=== PATIENT | female | born 1980 | race African-American/Black ===

== ENCOUNTER 2017-12-10 04:09 | Inpatient (IN) | payer BC ==
[2017-12-10] MEDS ORDERED: METHYLERGONOVINE 0.2 MG INJ IM ×2 (05:30→13:30)
[2017-12-10] MEDS ORDERED: CARBOPROST 250 MCG INJ IM ×2 (05:30→13:30)
[2017-12-10] MEDS ORDERED: CEFAZOLIN 2 GM/50 ML (PMX) 50 ML IV (05:30)
[2017-12-10] MEDS ORDERED: OXYTOCIN 30 UNITS/LR 500 ML IV ×2 (05:30→13:30)
[2017-12-10] MEDS ORDERED: MISOPROSTOL 200 MCG TAB PR ×2 (05:30→13:30)
[2017-12-10 05:49] LABS: ADD MAN DIFF? NO
[2017-12-10 05:57] LABS: WHITE BLOOD COUNT 6.3 10^3/ul (4.8-10.8)
[2017-12-10 05:57] LABS: BASOPHILS % 0.3 % (0.0-2.0); EOSINOPHILS % 0.6 % (0.0-7.0); HEMATOCRIT 34.2 % (37.0-47.0); HEMOGLOBIN 11.5 g/dl (12.0-16.0); LYMPHOCYTES # 1.7 10^3/ul (0.8-2.9); LYMPHOCYTES % 26.9 % (15.0-51.0); MEAN CORPUSCULAR HEMOGLOBIN 27.8 pg (29.0-33.0); MEAN CORPUSCULAR HGB CONC 33.6 g/dl (32.0-37.0); MEAN CORPUSCULAR VOLUME 82.6 fl (82.0-101.0); MEAN PLATELET VOLUME 11.1 fl (7.4-10.4); MONOCYTE # 0.6 10^3/ul (0.3-0.9); MONOCYTES % 9.5 % (0.0-11.0); NEUTROPHIL # 3.9 10^3/ul (1.6-7.5); NEUTROPHILS % 62.2 % (39.0-77.0); PLATELET COUNT 221 10^3/UL (140-415); RED BLOOD COUNT 4.14 10^6/ul (4.20-5.40); RED CELL DISTRIBUTION WIDTH 14.6 % (11.5-14.5)
[2017-12-10 06:04] LABS: ADD UMIC NO; UR ASCORBIC ACID NEGATIVE (NEGATIVE); UR BACTERIA FEW /HPF (NONE SEEN); UR BILIRUBIN (Dip) NEGATIVE (NEGATIVE); UR BLOOD (Dip) NEGATIVE (NEGATIVE); UR CLARITY SLIGHTLY CLOUDY (CLEAR); UR COLOR YELLOW (YELLOW); UR GLUCOSE (Dip) NEGATIVE (NEGATIVE); UR KETONES (Dip) NEGATIVE (NEGATIVE); UR LEUKOCYTE ESTERASE (Dip) NEGATIVE Leu/ul (NEGATIVE); UR NITRITE (Dip) NEGATIVE (NEGATIVE); UR RBC 0 /HPF (0-5); UR SPECIFIC GRAVITY (Dip) 1.014 (1.003-1.030); UR SQUAMOUS EPITHELIAL CELL FEW /HPF (FEW); UR TOTAL PROTEIN (Dip) NEGATIVE (NEGATIVE); UR UROBILINOGEN (Dip) NEGATIVE (NEGATIVE); UR WBC 2 /HPF (0-5)
[2017-12-10 06:14] LABS: INR 0.85; PROTIME 11.7 Sec (11.9-14.9); PT RATIO 0.9
[2017-12-10 06:15] LABS: PARTIAL THROMBOPLASTIN TIME 27.3 Sec (25.0-35.0)
[2017-12-10 06:16] LABS: ALANINE AMINOTRANSFERASE 19 IU/L (13-69); ALBUMIN 3.3 g/dl (3.3-4.9); ALKALINE PHOSPHATASE 176 IU/L (42-121); AMPHETAMINE/METHAMPHETAMINE Negative (NEGATIVE); ANION GAP 12 (8-16); ASPARTATE AMINO TRANSFERASE 19 IU/L (15-46); BARBITURATES Negative (NEGATIVE); BENZODIAZEPINES Negative (NEGATIVE); BILIRUBIN,INDIRECT 0.2 mg/dl (0-1.1); BILIRUBIN,TOTAL 0.2 mg/dl (0.2-1.3); BLOOD UREA NITROGEN 9 mg/dl (7-20); CALCIUM 9.3 mg/dl (8.4-10.2); CANNABINOIDS Negative (NEGATIVE); CARBON DIOXIDE 25 mmol/L (21-31); CHLORIDE 105 mmol/L (97-110); COCAINE Negative (NEGATIVE); CREATININE 0.77 mg/dl (0.44-1.00); GLUCOSE 106 mg/dl (70-220); OPIATES Negative (NEGATIVE); POTASSIUM 4.4 mmol/L (3.5-5.1); SODIUM 138 mmol/L (135-144); TOTAL PROTEIN 6.6 g/dl (6.1-8.1)
[2017-12-10] MEDS: LACTATED RINGER'S 1,000 ML IV ×3 (06:17→21:23)
[2017-12-10 06:50] LABS: HEPATITIS B SURFACE ANTIGEN NEGATIVE (NEGATIVE)
[2017-12-10] MEDS ORDERED: OXYTOCIN 30 UNITS/LR 500 ML BAG IV (07:00)
[2017-12-10] MEDS ORDERED: CEFAZOLIN 3 GM in DEXTROSE 5% 100 ML IV (07:30)
[2017-12-10] MEDS ORDERED: PHENYLephrine (100 MCG/ML) 5ML SYG (08:17)
[2017-12-10] MEDS ORDERED: BUPIVACAINE 0.75%/DEXT (SPINAL) 2 ML INJ (08:17)
[2017-12-10] MEDS ORDERED: morphine SULFATE/PF (10 MG/10 ML) INJ (08:17)
[2017-12-10] MEDS ORDERED: OXYTOCIN 10 UNIT INJ (08:17)
[2017-12-10] MEDS ORDERED: ONDANSETRON 4 MG INJ (08:17)
[2017-12-10 08:38] LABS: HIV 1&2 ANTIBODY NEGATIVE (NEGATIVE)
[2017-12-10] MEDS: OXYTOCIN 30 UNITS/LR 500 ML IV ×2 (09:50→16:43)
[2017-12-10] MEDS: KETOROLAC 30 MG INJ IV ×2 (10:23→16:41)
[2017-12-10] MEDS ORDERED: morphine 2 MG INJ IV (10:30)
[2017-12-10] MEDS ORDERED: NALOXONE (0.4 MG/ML) INJ IV (10:30)
[2017-12-10] MEDS ORDERED: ONDANSETRON 4 MG INJ IV (10:30)
[2017-12-10] MEDS ORDERED: DIPHENHYDRAMINE 50 MG INJ IV (10:30)
[2017-12-10] MEDS: LABETALOL 200 MG TAB PO (10:54)
[2017-12-10] MEDS: LABETALOL 100 MG TAB PO ×2 (13:23→21:00)
[2017-12-10] MEDS: CEFAZOLIN 2 GM/50 ML (PMX) 50 ML IVPB (17:04)
[2017-12-10] MEDS: LANOLIN 7 GM TUBE TOP (18:00)
[2017-12-10 19:35] LABS: RAPID PLASMA REAGIN NONREACTIVE (NR)
[2017-12-11] MEDS: CEFAZOLIN 2 GM/50 ML (PMX) 50 ML IVPB ×2 (01:12→08:41)
[2017-12-11] MEDS: KETOROLAC 30 MG INJ IV (01:34)
[2017-12-11] MEDS: LACTATED RINGER'S 1,000 ML IV ×2 (05:23→06:11)
[2017-12-11 06:31] LABS: ADD MAN DIFF? NO
[2017-12-11 06:36] LABS: BASOPHILS % 0.2 % (0.0-2.0); EOSINOPHILS % 0.5 % (0.0-7.0); HEMATOCRIT 28.7 % (37.0-47.0); HEMOGLOBIN 9.8 g/dl (12.0-16.0); LYMPHOCYTES # 1.6 10^3/ul (0.8-2.9); LYMPHOCYTES % 18.3 % (15.0-51.0); MEAN CORPUSCULAR HEMOGLOBIN 28.5 pg (29.0-33.0); MEAN CORPUSCULAR HGB CONC 34.1 g/dl (32.0-37.0); MEAN CORPUSCULAR VOLUME 83.4 fl (82.0-101.0); MONOCYTE # 0.8 10^3/ul (0.3-0.9); MONOCYTES % 8.6 % (0.0-11.0); NEUTROPHIL # 6.4 10^3/ul (1.6-7.5); NEUTROPHILS % 71.8 % (39.0-77.0); PLATELET COUNT 177 10^3/UL (140-415); RED BLOOD COUNT 3.44 10^6/ul (4.20-5.40); RED CELL DISTRIBUTION WIDTH 14.8 % (11.5-14.5)
[2017-12-11 06:36] LABS: WHITE BLOOD COUNT 8.9 10^3/ul (4.8-10.8)
[2017-12-11] MEDS: LABETALOL 100 MG TAB PO ×2 (08:41→21:00)
[2017-12-11] MEDS: IBUPROFEN 600 MG TAB PO ×3 (10:25→22:19)
[2017-12-11] MEDS ORDERED: IBUPROFEN 600 MG TAB PO ×2 (12:00)
[2017-12-11 12:02] LABS: RUBELLA ANTIBODY - IGG 1.39 index; RUBELLA ANTIBODY - IGM <20.00 AU/mL
[2017-12-11] MEDS: OXYCODONE/ACETAMINOPHEN (5/325) TAB PO ×2 (14:02→20:26)
[2017-12-12] MEDS: IBUPROFEN 600 MG TAB PO ×4 (04:46→22:48)
[2017-12-12] MEDS: OXYCODONE/ACETAMINOPHEN (5/325) TAB PO ×2 (05:57→21:10)
[2017-12-12] MEDS: LABETALOL 100 MG TAB PO ×2 (09:00→21:00)
[2017-12-13] MEDS: IBUPROFEN 600 MG TAB PO ×3 (05:05→17:16)
[2017-12-13] MEDS: LABETALOL 100 MG TAB PO (08:44)
[2017-12-13] MEDS: DIPHTH/TET/ACEL PERTUSS (ADULT) 0.5 ML VIAL IM* (09:00)
[2017-12-13] MEDS: OXYCODONE/ACETAMINOPHEN (5/325) TAB PO ×2 (09:28→14:23)
[2017-12-13] MEDS: LABETALOL 200 MG TAB PO (17:16)
== END 2017-12-13 22:05 | disposition home or self-care (01) | DRG 765 ==
LOC: OBT 04:09 → L-D 04:09 → OBT 05:20 → L-D 05:20 → PP1 13:06
PROC: 10D00Z1 Extraction of Products of Conception, Low, Open Approach (ICD-10-PCS; principal; 2017-12-10)
DX: O13.4 Gestational [pregnancy-induced] hypertension without significant proteinuria, complicating childbirth (principal); Z68.43 Body mass index [BMI] 50.0-59.9, adult; O99.214 Obesity complicating childbirth; O34.211 Maternal care for low transverse scar from previous cesarean delivery; O24.92 Unspecified diabetes mellitus in childbirth; Z3A.39 39 weeks gestation of pregnancy; Z37.0 Single live birth; E66.01 Morbid (severe) obesity due to excess calories
CPT/HCPCS: 76815; 76818; 80053; 80307; 81001; 81003; 84560; 85025; 85610; 85730; 86592; 86703; 86762; 86850; 86900; 86901; 87340; 99464